=== PATIENT | male | born 1980 | race African-American/Black ===

== ENCOUNTER 2024-05-08 12:45 | Emergency (ER) | payer BC, SELFPAY ==
[2024-05-08 12:46] VITALS: BP 170/89
[2024-05-08 13:33] LABS: ALT (SGPT) 22 U/L (0-50); AST (SGOT) 20 U/L (17-59); Albumin 4.7 g/dl (3.5-5.0); Alkaline Phosphatase 35 U/L (38-126); Blood Urea Nitrogen 18 mg/dl (9-20); Carbon Dioxide 28 mmol/L (22-30); Chloride 103 mmol/L (98-107); Glucose 97 mg/dl (70-99); Potassium 4.3 mmol/L (3.5-5.1); Sodium 137 mmol/L (135-145); Total Bilirubin 0.3 mg/dl (0.2-1.3); Total Protein 7.5 g/dl (6.3-8.2); eGFR > 60.00
--- NOTE | 2024-05-08 15:41 | ED.GENMED ---
History of Present Illness
General
Chief Complaint: Rectal Bleeding
Source: patient
Exam Limitations: none
Time Seen by Provider: 05/08/24 14:49
Nursing documentation reviewed up to this point in time: agreed with
History of Present Illness
History of Present Illness:
43-year-old male presenting to the emergency department today with concerns of bright red blood when wiping over the past few weeks off and on. Denies any abdominal pain black stool otherwise brown stool. Scheduled for colonoscopy with his GI care
routinely in the next few months. Denies any chest pain shortness of breath lightheadedness.
Past History
Past History
ED Past Medical History: Other (migraines)
Social History
Living: with family
Review of Systems
Review of Systems
Allergies reviewed?: Yes
All Other Systems: ROS reviewed and negative except as documented in HPI and ROS
Phy Exam
Physical Exam
Physical Exam:
GENERAL: Alert , in no apparent distress
EYE: pupils equal and reactive
NECK: Supple, no significant adenopathy.
ENT: o/p clr, mmm.
CARDIAC: Regular rate and rhythm .
LUNGS: Clear breath sounds bilaterally, no acute respiratory distress, no wheezes/rales/rhonchi
ABDOMEN: Rectal examination showing small external hemorrhoids with a small clot no active bleeding brown stool that is guaiac negative soft, without focal tenderness, no r/g, no cvat
NEUROLOGICAL: Alert and oriented, no focal neuro deficits
SKIN: Warm and dry, skin intact.
MUSCULOSKELETAL: No edema, well perfused.
PSYCH: Normal and appropriate interaction.
Course
Orders/Labs/Results
Orders:
Orders
05/08/24 12:53
Type+Screen Urgent
Comprehensive Metabolic Panel Urgent
05/08/24 15:47
Complete Blood Count/With Diff Urgent
Abnormal Lab Results
05/08/24 05/08/24
12:53 15:47
WBC 4.3 L 10^3/uL
(4.8-10.8)
RBC 4.69 L 10^6/uL
(4.70-6.10)
MPV 12.3 H fL
(7.4-10.4)
Alkaline Phosphatase 35 L U/L
(38-126)
05/08/24 15:47
05/08/24 12:53
Vital Signs
Initial and Last Documented VS:
Initial Vital Signs
Temp Pulse Resp BP Pulse Ox
98.1 F 62 18 170/89 99
05/08/24 12:46 05/08/24 12:46 05/08/24 12:46 05/08/24 12:46 05/08/24 12:46
Last Documented Vital Signs
Temp Pulse Resp BP Pulse Ox
98.1 F 62 18 170/89 99
05/08/24 12:46 05/08/24 12:46 05/08/24 12:46 05/08/24 12:46 05/08/24 12:46
MDM/Problems Addressed
MDM/Problems Addressed:
43-year-old male presenting to the emergency department today with concerns of red blood when wiping over the past few weeks intermittently. Here patient does have external hemorrhoid with a clot but no active bleeding stool is brown and guaiac
negative. Symptoms likely secondary to hemorrhoids. Normal vital signs no additional concerning features on exam advised for close outpatient follow-up with GI return precautions given.
*Critical Care Note
Total Time (30-74mins, 75-104mins- exclusive of procedures): Not Applicable
ED Attending Note
-
Portions of this chart may have been created with voice recognition software.� Occasional wrong word or��sound alike� substitutions may have occurred due to the inherent limitations of voice recognition software.
Discharge Plan
Departure
Patient Disposition: Home (Routine Discharge)
Date of Disposition: 05/08/24
Time of Disposition: 16:39
Patient with high blood pressure during this ER visit?: No
Condition: Good
Covid-19: Not Applicable
Discharge Problem:
Hemorrhoid
Instructions: Hemorrhoids (DC)
Prescriptions:
New
Hemorrhoidal Ointment
1 applic KY Q8H Qty: 57 0RF
No Action
carvedilol 25 mg Tablet
12.5 mg PO BID
Theragen Tablet
1 tab PO DAILY
spironolactone 25 mg Tablet
25 mg PO DAILY
cyanocobalamin (vitamin B-12) 500 mcg Tablet
500 mcg PO DAILY
albuterol sulfate [ProAir HFA] 90 mcg/actuation Hfa Aerosol Inhaler
2 puff INHALATION R Q6HPRN PRN (Reason: sob)
clindamycin phosphate 1 % Solution
1 applic TOPICAL TID
coenzyme Q10 [CoQ-10] 100 mg Capsule
100 mg PO DAILY
rosuvastatin 5 mg Tablet
5 mg PO HS
Entresto 97-103 mg Tablet
1 tab PO BID
Referrals:
Muna Hidalgo DO [Family Provider] -
Activity Restrictions/Additional Instructions:
You came to the emergency department today with concerns of rectal bleeding. You are found to have a hemorrhoid. Please use the ointment and make sure you are staying very hydrated and eating plenty of fiber to loosen your bowel movements. Please
follow closely with GI otherwise return to the emergency department for any worsening, new or concerning symptoms.
Interventions
Interventions:
*Risk Screen - Suicide Last Done: 05/08/24 12:46
*General Assessment Last Done: 05/08/24 12:46
*Neglect/Abuse Screening Last Done: 05/08/24 12:46
ED- Fall Risk Assessment Last Done: 05/08/24 15:48
*ED COVID-19 Vaccine History Last Done: 05/08/24 15:49
GC-Jtykeb-Jlpjezvejv Assessment Last Done: 05/08/24 15:48
ED- Cardiac Assessment Last Done: 05/08/24 15:48
ED- Pulmonary Assessment Last Done: 05/08/24 15:48
Discharge Date and Time
Print Language: IRISH
[2024-05-08 15:48] VITALS: BMI 36.3
[2024-05-08 16:03] LABS: % Basophils 0.5 % (0-2); % Eosinophils 2.3 % (0-6); % Lymphocytes 44.9 % (20.5-51.1); % Monocytes 8.6 % (1.7-9.3); % Neutrophils 43.7 % (42.2-75.2); Absolute Eosinophils 0.1 10^3/uL (0-0.7); Absolute Lymphocytes 1.9 10^3/uL (1.2-3.4); Absolute Monocytes 0.4 10^3/uL (0.1-0.6); Absolute Neutrophils 1.9 10^3/uL (1.4-6.5); Hematocrit 40.8 % (39.0-52.0); Hemoglobin 13.6 g/dL (13.0-18.0); Mean Corp Hgb Conc. 33.3 g/dL (33.0-37.0); Mean Platelet Volume 12.3 fL (7.4-10.4); Nucleated Red Blood Cells % 0 % (-); Platelet Count 167 10^3/uL (130-400); Red Blood Cell Count 4.69 10^6/uL (4.70-6.10); Red Cell Dist. Width 12.7 % (11.5-14.5); White Blood Cell Count 4.3 10^3/uL (4.8-10.8)
[2024-05-08 16:43] VITALS: BP 161/72
== END 2024-05-08 16:44 | disposition home or self-care (01) ==
LOC: EMR 12:45
PROVIDERS: Emergency Medicine; Physician Assistant; EMERGENCY PHYSICIAN Student in an Organized Health Care Education/Training Program; FAMILY PHYSICIAN Student in an Organized Health Care Education/Training Program
DX: K62.5 Hemorrhage of anus and rectum (principal); K64.4 Residual hemorrhoidal skin tags; G43.909 Migraine, unspecified, not intractable, without status migrainosus; I10 Essential (primary) hypertension; E78.5 Hyperlipidemia, unspecified
CPT/HCPCS: 99283; 80053; 85025; 86850; 86900; 86901